=== PATIENT | male | born 1960 | race Caucasian/White ===

== ENCOUNTER → 2021-06-26 | Outpatient (CLI) | payer BC ==
--- NOTE | 2021-06-26 06:44 | MR ---
MRI CERVICAL SPINE: CLINICAL HISTORY: Neck pain into right arm. TECHNIQUE: Multiplanar, multisequence imaging of the cervical spine is performed without IV contrast. COMPARISON: Cervical spine x-ray 9 days ago FINDINGS: Sagittal images of the cervical spine show the craniocervical junction to appear within nor mal limits. The cervical and upper thoracic spinal cord is normal in caliber and signal. Redemonstra tion of grade 1 retrolisthesis C3 on C4 and C4 on C5. The vertebral body heights are normal. Mild-to -moderate disc space narrowing and anterior spurring C3-C4 through the C5-C6 levels. Heterogeneous Mo dic type I and type II endplate changes at these levels is noted. Axial images at C2-C3 level appear within normal limits. Axial images at C3-C4 levels with spondylolisthesis with broad-based left paracentral spur disc compl ex mildly effaces the anterior thecal sac, there is mild to moderate left-sided neural foraminal narr owing. Axial images at C4-C5 levels with spondylolisthesis with uncovertebral facet spurring, there is moder ate bilateral neural foraminal narrowing. Axial images at C5-C6 level show lobulated right paracentral/foraminal disc protrusion effacing the a nterolateral thecal sac and causing asymmetric moderate to severe right-sided neural foraminal narrow ing. Mild left-sided neural foraminal narrowing is noted due to uncovertebral facet arthropathy. Axial images at C6-C7 level show focal left paracentral disc protrusion mildly effaces the anterior t hecal sac, patent bilateral neural foramina. Axial images at C7-T1 level appear within normal limits. IMPRESSION: Multilevel spondylolisthesis and degenerative changes in the cervical spine as detailed a halie.
== END | disposition home or self-care (01) ==
LOC: RADMRIMAIN 06:00
PROVIDERS: ATTEND Orthopaedic Surgery
DX: M50.223 Other cervical disc displacement at C6-C7 level (principal); M47.812 Spondylosis without myelopathy or radiculopathy, cervical region; M43.12 Spondylolisthesis, cervical region; M50.322 Other cervical disc degeneration at C5-C6 level
CPT/HCPCS: 72141

== ENCOUNTER → 2021-09-07 | Outpatient (CLI) | payer BC ==
[2021-09-07 09:54] VITALS: BP 137/84; PULSE 70; RESP 18; TEMP 98.1
--- NOTE | 2021-09-07 10:30 | P.CON ---
Consult Note - . Consult date: 09/07/21 Assessment/Plan:: HISTORY OF PRESENT ILLNESS: 61 yr old male as a referral from Dr Solorio presents today with severe and chronic cervical spine x 20 yrs secondary to spondylolisthesis, disc protrusions, neuroforaminal stenoses, DDD and facet arthropathy for evaluation. Pain was exacerbated again in Apr, 2021 after shoveling snow. Pain is localized to the R side of his neck and radiates to R shoulder and RUE. It is 6/10 in intensity, intermittent, burning, sharp in character, provoked with lifting and throwing with the RUE and palliated with chiropractic treatments 3 times per week, massage therapy weekly, medications (Motrin), ice, inactivity, sleeping on his L side, repositioning and rest. PMH: Hyperlipidemia PSH: R wrist surgery, R elbow surgery, Thyroidectomy, Appendectomy SH: Negative x 3 FH: Non contributory All: NKDA Meds: See list REVIEW OF ORGAN SYSTEMS: CONSTITUTIONAL: No fevers or chills. No recent weight loss. HEENT: No visual acuity loss, eye pain, difficulties with hearing. No nosebleeds. No difficulty swallowing. RESPIRATORY: Denies any troubles with breathing or dyspnea on exertion. CARDIOVASCULAR: Denies any chest pain, palpitations, or recent heart attacks. GASTROINTESTINAL: Denies fatty food intolerance. Has change in bowel habits and gas bloat. GENITOURINARY: Denies any blood in urine. Has increased urinary frequency. NEUROLOGICAL: + numbness and tingling along the distal extremities. No seizure disorders or headaches. MUSCULOSKELETAL: + back pain SKIN: No skin cancer. No rash. PSYCHIATRIC: Denies current depression or suicidal thoughts. ENDOCRINE: Denies current thyroid disorders. Denies any blood sugar glucose intolerance. HEME/LYMPHATIC: Denies any lumps and bumps around the neck. History of deep venous thrombosis. ALLERGY/IMMUNOLOGY: No immunoglobulin therapy. No immune deficiencies. BREAST: Denies current breast lumps, pain or nipple discharge. Physical Examinations : Constitutional : Cooperative , not in acute distress . HEENT: Neck supple. No Lymphadenopathy. Normal thyroid size . Eyes no ptosis , no icterus, no photophobia . Hearing intact. Normal oropharynx. No Thrush. Respiratory : Chest clear to auscultations bilaterally. No wheezing. No rhonchi. Cardiovascular : Regular rate and rhythm , S1 / S2. No S3 . No S4. Gastrointestinal : Abdomen soft. No tenderness. Bowel sounds x 4. No organomegaly . Genitourinary : Deferred. Neurologic : Cranial nerve II to XII intact. No focal neurological deficits. Psychiatric : alert & oriented x 3. Matching mood & appropriate affect. Judgment & insight intact. Lymphatic No Lymphadenopathy. Musculoskeletal : Cervical Spine Motor strength in the deltoid and biceps: Normal right side. Normal Left side Motor strength biceps and the wrist extensors: Normal right side . Normal left side Motor strength in the triceps muscle: Normal right side. Normal left side +R lateral flexion pain Deep tendon reflexes: Normal at the biceps. Normal at Brachioradialis. Normal at triceps Cervical facet loading test: positive on the R Spurling test: positive bilaterally Neck distraction test: positive bilaterally Dariusz sign: positive bilaterally Lumbar spine Motor strength lower extremities ,thigh and legs 5/5 Right side , 5/5 Left side Deep tendon reflexes : Normal Knee Jerk. Normal Ankle Jerk Vertebral body tenderness over Lumbar facet Loading Test: positive Right / positive Left Range of motion of the lumbar spine Flexion 30 degrees, extension 10 degrees Straight Leg Raise test: Left/ Right positive at degree Sergio test: positive right / positive left. Severe tenderness over the Sacroiliac joint on the Right / Left sides Gaenslen test: positive bilaterally Seated flexion test: positive bilaterally. Sacral spine : Severe tenderness over the Sacroiliac joint: right side / left side Range of motion: Flexion of the lumbar spine <60 degrees Range of motion: Extension of the lumbar spine <20 degrees Gaenslen's Test positive José Miguel's Test positive Sergio test: positive right side / left side Thigh Thrust Test Sacral Thrust Test Imaging: MRI without contrast of the cervical spine from 06/26/21 reviewed Assessment/ Plan : Cervical DDD, Cervical spondylolisthesis Recommendation of R C5-C6 selective nerve root block. May need a series of injections, up to RFA, for optimal pain relief. Risks, benefits of procedure discussed and patient verbalized understanding. Denies aspirin or anti- coagula nt use or medical history of diabetes. All questions answered. I have spent greater than 50 minutes on patient care today. Dr Wolf was available by phone for the evaluation of this patient. The time was used to review the medical records including relevant urine studies and Prescription history (MAPs), review of the available imaging, evaluation and examination of the patient, coordination of care with the medical staff and if applicable referring physicians, as well as creation of the medical record PQRS Measure Charge Sheet Mode of Arrival: Ambulatory - Pain Location Neck Non-Pharmacological Interventions: Chiropractic Treatment, Ice, Inactivity, Massage, Position/Reposition, Stretching Pharmacological Interventions: PRN Medication PQRS Narrative: Blood Pressure 137/84 Pain Intensity [Neck] 10 Scale Used Numeric (1 - 10) Hx Alcohol Use (MH) Yes Home Medications: Ambulatory Orders Atorvastatin Calcium [Lipitor] 40 mg PO HS 09/04/21
== END ==
LOC: PNWHC3 09:06
PROVIDERS: ATTEND Specialist
DX: M43.12 Spondylolisthesis, cervical region (principal); M50.30 Other cervical disc degeneration, unspecified cervical region; E78.5 Hyperlipidemia, unspecified
CPT/HCPCS: 99211

== ENCOUNTER 2021-11-12 06:08 | Day surgery (SDC) | payer BC ==
[2021-11-10 11:25] VITALS: BMI 29.4
[~2021-11-12 06:08] MED LIST: LACTATED RINGERS 1,000 ML IV SCH; LIDOCAINE 1% (10MG/ML) FOR IV START INTRADERMA PRN
[2021-11-12 06:44] VITALS: TEMP 97.2
[2021-11-12] MEDS ORDERED: IOPAMIDOL M200 10 ML VIAL ONE (06:58)
[2021-11-12] MEDS ORDERED: DEXAMETHASONE SOD PHOSPHATE 10 MG/ML 1 ML VIAL ONE (06:58)
[2021-11-12 07:16] VITALS: BP 123/81; PULSE 72; RESP 16
--- NOTE | 2021-11-12 07:53 | P.PCN ---
Date of Procedure: 11/12/21 Procedure(s) Performed: PREOPERATIVE DIAGNOSIS: 1-cervical radiculopathy . 2-cervical foraminal stenosis. 3-cervical spondylosis with cervical facet arthropathy POSTOPERATIVE DIAGNOSIS: Same as preoperative diagnoses. PROCEDURE 1. Transforaminal epidural steroid injection under fluoroscopic guidance at right C5-6 level. (Fluoroscopy images stored on file in the radiology Department ) 2. cervical epidurogram . ANESTHESIA: Local with 1% lidocaine 3 ml only . EBL: Minimal PROCEDURE INDICATION: The patient with low back pain and radiculopathy symptoms unresponsive to conservative treatment. PROCEDURE DESCRIPTION / TECHNIQUE: The patient was seen and identified in the preoperative area. Risks, benefits, complications, and alternatives were discussed with the patient. The patient agreed to proceed with the procedure and signed the consent. IV was started, and vital signs were stable. Patient was taken to the OR and time out was completed. The patient was placed in theLateral position on procedure table ( right side up ). The right cervical area was prepped and draped in the usual sterile fashion. Critical pause was taken. Vital signs were closely monitored during the procedure. Using oblique fluoroscopy, the chin of the ``Zeke dog at right C5-6 level was identified, and the skin and deeper tissues just below was localized with 1% lidocaine. Subsequently, a 25-gauge 2-inch spinal needle was advanced under a tunneled view fluoroscopic guidance just underneath the chin of the ``Zeke dog at the right C5-6 Under lateral fluoroscopy, the needle was then advanced to the posterior border of the interforaminal space. After negative aspiration of CSF and blood and with no paresthesias, 1 mL Isovue 200 contrast dye was injected excellent epidurogram and outlining of the nerve root Subsequently, 2 mL of block solution containing 20 mg Dexamethson PF was injected. Needle was removed and the. At the end of the procedure, skin was cleansed, and bandages were applied. COMPLICATIONS:none DISPOSITION / PLANS: The patient was placed in a supine position and transferred to the recovery area in a stable condition for observation. There was no evidence of lower extremity motor or sensory deficit after the procedure. Patient was discharged from the recovery room after meeting discharge criteria. Home discharge instructions were given to the patient by the staff. The patient was reexamined prior to discharge.
--- NOTE | 2021-11-12 08:14 | FL ---
EXAMINATION TYPE: FL guided pain mgmt statistic DATE OF EXAM: 11/12/2021 HISTORY: Fluoroscopy time 8 seconds of fluoroscopy provided. IMPRESSION: 1. Fluoroscopy time.
== END 2021-11-12 07:25 | disposition home or self-care (01) ==
LOC: ORPAIN 06:08
PROVIDERS: ATTEND Specialist
DX: M47.22 Other spondylosis with radiculopathy, cervical region (principal); M48.02 Spinal stenosis, cervical region
CPT/HCPCS: 64479; J1100; Q9966

== ENCOUNTER 2022-01-07 06:01 | Day surgery (SDC) | payer BC ==
[2022-01-07] MEDS ORDERED: LACTATED RINGERS 1,000 ML IV SCH (06:12)
[2022-01-07] MEDS ORDERED: LIDOCAINE 1% (10MG/ML) FOR IV START INTRADERMA PRN (06:12)
[2022-01-07 06:30] VITALS: RESP 16; TEMP 97.1
[2022-01-07] MEDS ORDERED: IOPAMIDOL M200 10 ML VIAL ONE (06:57)
[2022-01-07] MEDS ORDERED: DEXAMETHASONE SOD PHOSPHATE 10 MG/ML 1 ML VIAL ONE (06:57)
--- NOTE | 2022-01-07 07:10 | P.PCN ---
Date of Procedure: 01/07/22 Procedure(s) Performed: PREOPERATIVE DIAGNOSIS: 1-cervical radiculopathy . 2-cervical foraminal stenosis. 3-cervical spondylosis with cervical facet arthropathy POSTOPERATIVE DIAGNOSIS: Same as preoperative diagnoses. PROCEDURE 1. Transforaminal epidural steroid injection under fluoroscopic guidance at right C5-6 level. (Fluoroscopy images stored on file in the radiology Department ) 2. cervical epidurogram . ANESTHESIA: Local with 1% lidocaine 3 ml only . EBL: Minimal PROCEDURE INDICATION: The patient with low back pain and radiculopathy symptoms unresponsive to conservative treatment. PROCEDURE DESCRIPTION / TECHNIQUE: The patient was seen and identified in the preoperative area. Risks, benefits, complications, and alternatives were discussed with the patient. The patient agreed to proceed with the procedure and signed the consent. IV was started, and vital signs were stable. Patient was taken to the OR and time out was completed. The patient was placed in theLateral position on procedure table ( right side up ). The right cervical area was prepped and draped in the usual sterile fashion. Critical pause was taken. Vital signs were closely monitored during the procedure. Using oblique fluoroscopy, the chin of the ``Zeke dog at right C5-6 level was identified, and the skin and deeper tissues just below was localized with 1% lidocaine. Subsequently, a 25-gauge 2-inch spinal needle was advanced under a tunneled view fluoroscopic guidance just underneath the chin of the ``Zeke dog at the right C5-6 Under lateral fluoroscopy, the needle was then advanced to the posterior border of the interforaminal space. After negative aspiration of CSF and blood and with no paresthesias, 1 mL Isovue 200 contrast dye was injected excellent epidurogram and outlining of the nerve root Subsequently, 2 mL of block solution containing 20 mg Dexamethson PF was injected. Needle was removed and the. At the end of the procedure, skin was cleansed, and bandages were applied. COMPLICATIONS:none DISPOSITION / PLANS: The patient was placed in a supine position and transferred to the recovery area in a stable condition for observation. There was no evidence of lower extremity motor or sensory deficit after the procedure. Patient was discharged from the recovery room after meeting discharge criteria. Home discharge instructions were given to the patient by the staff. The patient was reexamined prior to discharge.
[2022-01-07 07:30] VITALS: BP 116/69; PULSE 60
--- NOTE | 2022-01-07 07:42 | FL ---
Intraoperative/procedural fluoroscopic services were provided for right cervical transforaminal injec tion. Total fluoroscopy time is 3 seconds with a total of 2 submitted images to PACS. Please see the operative note for further details.
== END 2022-01-07 07:30 | disposition home or self-care (01) ==
LOC: ORPAIN 06:01
PROVIDERS: ATTEND Specialist
DX: M47.22 Other spondylosis with radiculopathy, cervical region (principal); M48.02 Spinal stenosis, cervical region
CPT/HCPCS: 64479; J1100; Q9966; 64483